=== PATIENT | male | born 1955 | race Caucasian/White ===

== ENCOUNTER 2020-06-12 14:57 | Inpatient (IN) | payer OTHER ==
[~2020-06-12] VITALS: Ht 172.7 cm; Wt 113.4 kg
[2020-06-12] MEDS ORDERED: LISI5 PO (15:22)
[2020-06-12] MEDS ORDERED: ATOR20 PO (15:23)
[2020-06-12] MEDS ORDERED: HYDCHL25 PO (15:23)
[2020-06-12] MEDS ORDERED: FINA5 PO (15:23)
[2020-06-12 15:27] LABS: BASOPHILS ABSOLUTE AUTO 0.04 K/mm3 (0.00-0.23); BASOPHILS PERCENT AUTO 0 % (0-2); EOSINOPHILS ABSOLUTE AUTO 0.03 K/mm3 (0.00-0.68); EOSINOPHILS PERCENT AUTO 0 % (0-6); Hematocrit 49.3 % (37.0-53.0); Hemoglobin 16.9 g/dL (13.5-17.5); IMMATURE GRAN ABSOLUTE AUTO 0.04 K/mm3 (0.00-0.10); IMMATURE GRAN PERCENT AUTO 0 % (0-1); LYMPHOCYTES ABSOLUTE AUTO 1.61 K/mm3 (0.84-5.20); LYMPHOCYTES PERCENT AUTO 16 % (21-46); MONOCYTES ABSOLUTE AUTO 0.62 K/mm3 (0.16-1.47); MONOCYTES PERCENT AUTO 6 % (4-13); Mean Corpuscular HGB 31.5 pg (26.0-34.0); Mean Corpuscular HGB Conc 34.3 g/dL (31.5-36.5); Mean Corpuscular Volume 92 fL (80-100); Mean Platelet Volume 8.8 fL (9.1-12.4); NEUTROPHILS ABSOLUTE AUTO 7.46 K/mm3 (1.96-9.15); NEUTROPHILS PERCENT AUTO 76 % (41-73); Platelet Count 278 K/mm3 (150-400); RDW Coefficient Variation 13.2 % (11.7-14.2); RDW Standard Deviation 44.7 fL (35.1-46.3); Red Blood Cell Count 5.37 M/mm3 (4.30-5.90)
[2020-06-12 15:57] LABS: Alanine Aminotransfer (ALT/SGP 44 U/L (12-78); Albumin, Blood 3.7 g/dL (3.4-5.0); Albumin/Globulin Ratio 1.1 (0.8-1.8); Alk Phos 74 U/L (50-136); Anion Gap 6 mmol/L (6-16); Aspartate Aminotrans (AST/SGOT 27 U/L (12-37); Bilirubin, Total 0.6 mg/dL (0.1-1.0); Blood Urea Nitrogen 13 mg/dL (8-24); Bun/Creatinine Ratio 14.9 (12.0-20.0); CO2, Blood 27 mmol/L (21-32); Calcium, Blood 10.1 mg/dL (8.5-10.1); Chloride, Blood 104 mmol/L (98-108); Creatinine, Blood 0.87 mg/dL (0.60-1.20); Globulin, Blood 3.3 g/dL (2.2-4.0); Glomerular Filtration Rate >60 (60-); Glucose, Blood 148 mg/dL (70-99); Sodium, Blood 137 mmol/L (136-145)
[2020-06-12 20:32] LABS: Influenza A, PCR NEGATIVE (NEGATIVE); Influenza B, PCR NEGATIVE (NEGATIVE); Resp Syncytial Virus, PCR NEGATIVE (NEGATIVE); SARS-Cov-2 (COVID-19) PCR, MMC NEGATIVE (NEGATIVE)
[2020-06-13 03:09] LABS: BASOPHILS ABSOLUTE AUTO 0.04 K/mm3 (0.00-0.23); BASOPHILS PERCENT AUTO 0 % (0-2); EOSINOPHILS ABSOLUTE AUTO 0.16 K/mm3 (0.00-0.68); EOSINOPHILS PERCENT AUTO 2 % (0-6); Hematocrit 47.7 % (37.0-53.0); Hemoglobin 16.4 g/dL (13.5-17.5); IMMATURE GRAN ABSOLUTE AUTO 0.03 K/mm3 (0.00-0.10); IMMATURE GRAN PERCENT AUTO 0 % (0-1); LYMPHOCYTES ABSOLUTE AUTO 2.93 K/mm3 (0.84-5.20); LYMPHOCYTES PERCENT AUTO 28 % (21-46); MONOCYTES ABSOLUTE AUTO 1.27 K/mm3 (0.16-1.47); MONOCYTES PERCENT AUTO 12 % (4-13); Mean Corpuscular HGB 31.4 pg (26.0-34.0); Mean Corpuscular HGB Conc 34.4 g/dL (31.5-36.5); Mean Corpuscular Volume 91 fL (80-100); Mean Platelet Volume 8.9 fL (9.1-12.4); NEUTROPHILS ABSOLUTE AUTO 6.14 K/mm3 (1.96-9.15); NEUTROPHILS PERCENT AUTO 58 % (41-73); Platelet Count 278 K/mm3 (150-400); RDW Coefficient Variation 13.2 % (11.7-14.2); Red Blood Cell Count 5.22 M/mm3 (4.30-5.90); White Blood Cell Count 10.57 K/mm3 (4.00-11.30)
[2020-06-13 03:29] LABS: Anion Gap 4 mmol/L (6-16); Blood Urea Nitrogen 13 mg/dL (8-24); Bun/Creatinine Ratio 14.6 (12.0-20.0); CO2, Blood 29 mmol/L (21-32); Calcium, Blood 10.8 mg/dL (8.5-10.1); Chloride, Blood 104 mmol/L (98-108); Creatinine, Blood 0.89 mg/dL (0.60-1.20); Glomerular Filtration Rate >60 (60-); Glucose, Blood 122 mg/dL (70-99); Potassium, Blood 4.2 mmol/L (3.5-5.5); Sodium, Blood 137 mmol/L (136-145)
--- NOTE | 2020-06-13 05:26 | NUR ---
SHIFT SUMMARY PT ALERT AND ORIENTED. VS STABLE. HR NSR WITH FIRST DEGREE IN THE 60'S. PT HAS DENIED CP THIS SHIFT. NITRO PASTE TO CHEST. HEP GTT INFUSING PER ORDERS. TROP TRENDING UP. PT HAS BEEN NPO SINCE MIDNIGHT IN ANTICIPATION OF CARDIOLOGY CONSULT. WILL CONTINUE TO MONITOR CLOSELY.
--- NOTE | 2020-06-13 18:16 | NUR ---
PT SUMMARY: PT S/P ANGIO WITH STENTING MID LAD. PT HAS BEEN CHEST PAIN FREE FOR THE SHIFT, RIGHT RADIAL ACCESS SITE FULLY RECOVERED NO HEMATOMA/BLEEDING NOTED FOR THE SHIFT, TRANSPARENT DRESSING IN PLACE. VITALS HAS BEEN STABLE. INDEPENDENT IN THE ROOM. PT TO DC IN AM, IF STABLE. NO OTHER ISSUES ENCOUNTERED FOR THE SHIFT. PT ABLE TO MAKE NEEDS KNOWN, WILL REPORT TO ONCOMING SHIFT
[2020-06-14 03:39] LABS: Hematocrit 46.2 % (37.0-53.0); Hemoglobin 15.7 g/dL (13.5-17.5); Mean Corpuscular Volume 91 fL (80-100); Mean Platelet Volume 8.9 fL (9.1-12.4); Platelet Count 246 K/mm3 (150-400); RDW Coefficient Variation 13.3 % (11.7-14.2); RDW Standard Deviation 45.1 fL (35.1-46.3); Red Blood Cell Count 5.06 M/mm3 (4.30-5.90); White Blood Cell Count 9.92 K/mm3 (4.00-11.30)
[2020-06-14 04:01] LABS: Albumin, Blood 3.3 g/dL (3.4-5.0); Anion Gap 6 mmol/L (6-16); Blood Urea Nitrogen 15 mg/dL (8-24); Bun/Creatinine Ratio 15.4 (12.0-20.0); CHOL/HDL RATIO 4.3; CO2, Blood 28 mmol/L (21-32); Calcium, Blood 9.2 mg/dL (8.5-10.1); Chloride, Blood 104 mmol/L (98-108); Cholesterol 142 mg/dL (50-200); Creatinine, Blood 0.98 mg/dL (0.60-1.20); Glomerular Filtration Rate >60 (60-); Glucose, Blood 158 mg/dL (70-99); HDL Cholesterol 33 mg/dL (>39); LDL/HDL RATIO 2.1; Low Density Lipoprotein Chol 71 mg/dL (0-110); Phosphorus, Blood 2.6 mg/dL (2.5-4.9); Potassium, Blood 3.5 mmol/L (3.5-5.5); Sodium, Blood 138 mmol/L (136-145); Triglycerides 191 mg/dL (30-160); Very Low Density Lipoprot Chol 38 mg/dL (6-32)
--- NOTE | 2020-06-14 05:34 | NUR ---
SHIFT SUMMARY PATIENT IS ALERT AND ORIENTED. INDEPENDENT IN THE ROOM. RIGHT RADIAL SITE WNL, GOOD PULSES, COLOR AND WARMTH IN RUE. PATIENT WEARING SPLINT. 02 SATS >90% ON RA. VSS, NO ACUTE CHANGES. CALL LIGHT IN REACH.
--- NOTE | 2020-06-14 07:38 | NUR ---
AM NOTE PT RESTING IN BED. A&Ox4; CALM AND COOPERATIVE WITH CARE. UP IND IN ROOM THIS AM. PT DENIES CHEST PAIN/PRESSURE, SOB, NAUSEA AND DIZZINESS. BREATHING EVEN AND UNLABORED, SPO2 >90% ON RA, LS CLEAR. BS NORMOACTIVE x4 QUADRANTS. REGULAR,REGULAR HEART SOUNDS, HR SB-NSR PER TELE. VSS. RIGHT RADIAL SITE; SMALL AMOUNT OF BLOOD NOTED UNDER TEGADERM; NO ADDITIONAL BLEEDING, BRUISNG OR HEMATOMA NOTED AT SITE. ARM BOARD IN PLACE. PT APPEARS TO BE FOLLOWING ACTIVITY RESTRICTIONS. NO OTHER ACUTE CHAGNES NOTED, WILL CONTINUE TO MONTIOR.
[2020-06-14] MEDS ORDERED: ASPIR 8181 M1 PO (12:02)
[2020-06-14] MEDS ORDERED: METO25 PO (12:03)
[2020-06-14] MEDS ORDERED: CLOPIDOGREL75 MG PO (12:03)
[2020-06-14] MEDS ORDERED: NITR.4SL SL (12:04)
--- NOTE | 2020-06-14 12:35 | NUR ---
DISCHARGE SUMMARY NO CHANGES FROM PREVIOUS ASSESSMENT/NOTE. PT EDUCATED ON DISCHARGE INSTRUCTIONS, FOLLOW UP APPOINTMENTS AND MEDICATIONS. EDUCATED ON [employer] CONTRACT AND RADIAL SITE/STENDING. PT SENT HOME WITH STENT CARE. PT SENT HOME WITH PHYSICAL PRESCRIPTION SENT HOME WITH PATIENT PER HIS REQUEST. PT LEFT ROOM VIA WHEELCHAIR AT 1229.
== END 2020-06-14 12:30 | disposition home or self-care (01) | DRG 247 ==
LOC: ER 14:57 → ERHOLD 18:10 → PCU 18:10
PROVIDERS: Internal Medicine; Nurse Practitioner Acute Care; Physician Assistant; ADMIT Internal Medicine
PROC: 027034Z Dilation of Coronary Artery, One Artery with Drug-eluting Intraluminal Device, Percutaneous Approach (ICD-10-PCS; principal; 2020-06-13)
PROC: 4A023N7 Measurement of Cardiac Sampling and Pressure, Left Heart, Percutaneous Approach (ICD-10-PCS; 2020-06-13)
PROC: B2111ZZ Fluoroscopy of Multiple Coronary Arteries using Low Osmolar Contrast (ICD-10-PCS; 2020-06-13)
DX: I21.4 Non-ST elevation (NSTEMI) myocardial infarction (principal); I25.10 Atherosclerotic heart disease of native coronary artery without angina pectoris; R73.9 Hyperglycemia, unspecified; Z20.822 Contact with and (suspected) exposure to COVID-19; Z68.38 Body mass index [BMI] 38.0-38.9, adult; E66.01 Morbid (severe) obesity due to excess calories; F17.210 Nicotine dependence, cigarettes, uncomplicated; E78.5 Hyperlipidemia, unspecified; I10 Essential (primary) hypertension; Z90.89 Acquired absence of other organs; Z71.6 Tobacco abuse counseling; Z98.890 Other specified postprocedural states; Z79.899 Other long term (current) drug therapy
CPT/HCPCS: 0241U; 36415; 71046; 71275; 74175; 80048; 80053; 80061; 80069; 83036; 83690; 84484; 85025; 85027; 85347; 85730; 93005; 93010; 93306; 93458; 99152; 99153; 99285-25; A9270; C1725; C1769; C1874; C1887; C1894; C9600; J1644; J1650; J2250; J3010; J7030; J7050; Q9967